=== PATIENT | female | born 1980 | race Caucasian/White ===

== ENCOUNTER → 2018-05-15 17:04 | Outpatient (CLI) | payer OTHER, SELFPAY ==
[2018-05-15 17:26] LABS: Absolute Neutrophil Count 4.9 X10^3/uL (2.0-7.7); Basophil# 0.03 X10^3/uL; Basophil% 0.4 % (0-1); Eosinophil# 0.17 X10^3/uL; Eosinophils% 2.1 % (0-5); Hematocrit 35.8 % (37-47); Hemoglobin 12.4 g/dl (12.0-15.0); Lymphocyte % 26.4 % (19-41); Mean Corp Hgb Conc 34.6 g/gl (32-36); Mean Corpuscular Hgb 29.8 pg (27.0-32.0); Mean Corpuscular Volume 86.1 fL (81-99); Monocyte# 0.69 X10^3/uL; Monocyte% 8.7 % (0-10); Neutrophil # 4.94 X10^3/uL (2.7-7.7); Neutrophil % 62.1 % (47-70); Platelet Count 181 K/mm3 (150-450); RBC Distribution Width CV 13.2 % (11.6-14.6); RBC Distribution Width SD 40.6 fl (35.1-43.9); Red Blood Count 4.16 M/mm3 (4.2-5.4)
[2018-05-15 17:28] LABS: POSITIVE COUNT NO; POSITIVE DIFFERENTIAL NO; POSITIVE MORPHOLOGY NO
[2018-05-15 18:55] LABS: Chlamydia Trachomatis by PCR Negative (Negative); Neisserai gonorrhoeae by PCR Negative (Negative); Probe Check PASS; Sample Adequacy Control PASS; Specimen Processing Control PASS
[2018-05-16 05:02] LABS: Rapid Plasmin Reagin (RPR) NONREACTIVE (NONREACTIVE)
[2018-05-16 13:18] LABS: HIV - WCH Non-Reactive (Nonreactive); Rubella IgG 61.1 IU/mL
[2018-05-19 10:00] LABS: HEPATITIS B SURFACE AG Negative (Negative)
[2018-05-20 08:53] LABS: HPV Reflexed? NOT INDICATED
== END ==
PROVIDERS: Visit Provider Obstetrics & Gynecology
DX: O09.91 Supervision of high risk pregnancy, unspecified, first trimester (principal)
CPT/HCPCS: 85025; 86592; 86703; 86762; 86850; 86900; 87077; 87086; 87088; 87186; 87340; 87491; 87591; 88175; G0145

== ENCOUNTER → 2018-06-26 18:09 | Outpatient (CLI) | payer OTHER, SELFPAY | PROVIDERS: Visit Provider Nurse Practitioner Women's Health | DX: O23.40 Unspecified infection of urinary tract in pregnancy, unspecified trimester (principal); Z3A.00 Weeks of gestation of pregnancy not specified | CPT/HCPCS: 87086 ==

== ENCOUNTER → 2018-08-20 11:29 | Outpatient (CLI) | payer OTHER, SELFPAY ==
--- NOTE | 2018-08-20 11:31 | US_ITS ---
STUDY: SECOND AND THIRD TRIMESTER OBSTETRICAL ULTRASOUND - LIMITED REASON FOR EXAM: Female, 38 years old. Documentation of growth. LMP: March 11, 2018 PRIOR ULTRASOUND: Prior comparison studies are not available for review at this time. TECHNIQUE: Transabdominal TECHNICAL QUALITY: Adequate. FINDINGS: There is a single intrauterine fetus. The fetus is in a transverse lie with the head on the maternal right side. There is demonstrated cardiac activity with a heart rate of 144 bpm. There is a normal amniotic fluid volume. The placenta is posterior in location and is not low lying. There are Grade 1 placental changes. The cervix measures greater than 3.5 cm in length. BIOMETRY: BPD: 5.8 cm: 23 weeks, 6 days HC: 21.9 cm: 24 weeks, 0 days AC: 18.4 cm: 23 weeks, 2 days FL: 4.3 cm: 24 weeks, 0 days Age by LMP: 23 weeks, 1 days. ILENE by LMP: December 16, 2018. age by current US: 23 weeks, 6 days. ILENE by current US: December 11, 2018. Estimated weight: 606 grams, +/- 89 grams, 63 percentile. Gender: Male US/OB Limited With Biometrics IMPRESSION: Single living intrauterine gestation with estimated gestational age by size of 23 weeks 6 days. Electronically Signed: Fina Wagner MD at 9:06 EDT , Service support ,
== END ==
PROVIDERS: Referring Provider Obstetrics & Gynecology; Visit Provider Obstetrics & Gynecology
DX: O09.90 Supervision of high risk pregnancy, unspecified, unspecified trimester (principal); Z3A.00 Weeks of gestation of pregnancy not specified
CPT/HCPCS: 76816

== ENCOUNTER → 2018-08-22 10:15 | Outpatient (CLI) | payer SELFPAY ==
--- NOTE | 2018-08-22 10:18 | US_ITS ---
STUDY: SECOND AND THIRD TRIMESTER OBSTETRICAL ULTRASOUND REASON FOR EXAM: Female, 38 years old. Evaluate anatomy. LMP: Unknown. TECHNIQUE: Transabdominal TECHNICAL QUALITY: Adequate. PRIOR ULTRASOUND: 08/20/2018. FINDINGS: There is a single intrauterine fetus. The fetus is in an transverse lie with the head on the maternal left side. There is demonstrated cardiac activity with a heart rate of 149 bpm. There is a normal amniotic fluid volume. The largest amniotic fluid pocket measures 5.3 cm. The amniotic fluid index (CHUCKY) is 18 cm. The placenta is posterior in location and is not low lying. There are Grade 1 placental changes. The cervix measures 5.4 cm in length. The bilateral adnexal regions are visualized. BIOMETRY: BPD: 59 mm: 24 weeks, 2 days HC: 224 mm: 24 weeks, 3 days AC: 191 mm: 24 weeks, 3 days FL: 44 mm: 24 weeks, 3 days age by current US: 24 weeks, 2 days. ILENE by current US: 12/10/2018. Estimated weight: 657 grams, +/- 96 grams, 73 %. age by prior US: 23 weeks, 6 days. ILENE by prior US: 12/11/2018. Age by LMP: 23 weeks, 3 days. ILENE by LMP: 12/16/2018. ANATOMY: Gender: Male Cranium: Normal lateral ventricles. Normal choroid plexus. Normal cerebellum. Normal cisterna magna. Normal face, nose and lips. Chest: Normal 4-chamber heart. Abdomen/Pelvis: Normal diaphragm. Normal stomach. Normal abdominal wall. Normal cord insertion. Normal 3 vessel cord. Normal kidneys. Normal bladder. Spine: Normal cervical spine. Normal thoracic spine. Normal lumbar spine. Normal sacrum. Extremities: Normal bilateral upper extremities. Normal bilateral lower extremities. US/OB Anatomy Scan IMPRESSION: Single live intrauterine fetus in transverse presentation with an estimated gestational age of 24 weeks and 2 days. The ILENE is 12/10/2018. Electronically Signed: Genaro Monson MD at 15:59 EDT Tel , Service support ,
== END ==
PROVIDERS: Referring Provider Obstetrics & Gynecology; Visit Provider Obstetrics & Gynecology
DX: Z36.89 Encounter for other specified antenatal screening (principal)
CPT/HCPCS: 76805

== ENCOUNTER → 2018-09-17 12:01 | Outpatient (CLI) | payer OTHER, SELFPAY ==
[2018-09-17 13:31] LABS: Absolute Lymphocyte Count 1.75 X10^3/ul (0.83-4.51); Absolute Neutrophil Count 7.8 X10^3/uL (2.0-7.7); Basophil# 0.02 X10^3/uL; Basophil% 0.2 % (0-1); Eosinophil# 0.15 X10^3/uL; Eosinophils% 1.5 % (0-5); Hematocrit 33.1 % (37-47); Hemoglobin 10.5 g/dl (12.0-15.0); Lymphocyte # 1.75 X10^3/ul (4.0); Lymphocyte % 16.9 % (19-41); Mean Corp Hgb Conc 31.7 g/gl (32-36); Mean Corpuscular Hgb 27.9 pg (27.0-32.0); Mean Corpuscular Volume 87.8 fL (81-99); Mean Platelet Vol. 9.2 fl (6.2-12.0); Monocyte% 5.8 % (0-10); Neutrophil # 7.77 X10^3/uL (2.7-7.7); Neutrophil % 75.1 % (47-70); POSITIVE COUNT NO; POSITIVE DIFFERENTIAL NO; POSITIVE MORPHOLOGY NO; Platelet Count 181 K/mm3 (150-450); RBC Distribution Width CV 13.5 % (11.6-14.6); RBC Distribution Width SD 43.3 fl (35.1-43.9); Red Blood Count 3.77 M/mm3 (4.2-5.4); White Blood Count 10.3 K/mm3 (4.4-11.0)
[2018-09-17 13:50] LABS: Glucose Challenge Gest 1H 50g 135 mg/dL (70-140)
== END ==
PROVIDERS: Referring Provider Obstetrics & Gynecology; Visit Provider Obstetrics & Gynecology
DX: O09.92 Supervision of high risk pregnancy, unspecified, second trimester (principal); Z3A.00 Weeks of gestation of pregnancy not specified
CPT/HCPCS: 36415; 82950; 85025

== ENCOUNTER → 2018-10-06 06:33 | Outpatient (CLI) | payer OTHER, SELFPAY ==
[2018-10-06 09:05] LABS: Glucose GTT-Gestation. Fasting 75 mg/dL (<105)
[2018-10-06 09:09] LABS: Glucose GTT-Gestational 2 Hr 100 mg/dL (<165)
[2018-10-06 09:10] LABS: Glucose GTT-Gestational 1 Hr 121 mg/dL (<190)
[2018-10-06 10:49] LABS: Glucose GTT-Gestational 3 Hr 104 L (<145)
== END ==
PROVIDERS: Referring Provider Obstetrics & Gynecology; Visit Provider Obstetrics & Gynecology
DX: R73.09 Other abnormal glucose (principal)
CPT/HCPCS: 36415; 82951; 82952

== ENCOUNTER → 2018-11-07 18:11 | Outpatient (CLI) | payer OTHER, SELFPAY ==
[2018-11-07 13:07] VITALS: BMI 29.3
[2018-11-07 21:10] LABS: Group B Strep DNA By PCR Negative (Negative); Internal Control PASS; Probe Check PASS; Specimen Processing Control PASS
== END ==
PROVIDERS: Referring Provider Obstetrics & Gynecology; Visit Provider Obstetrics & Gynecology
DX: Z34.90 Encounter for supervision of normal pregnancy, unspecified, unspecified trimester (principal)
CPT/HCPCS: 87081; 87653

== ENCOUNTER 2018-11-21 09:50 | Outpatient (CLI) | payer SELFPAY ==
[2018-11-07 13:07] VITALS: BMI 29.3
[2018-11-21] MEDS: Lactated Ringers 1,000 ML 999 ML IV (10:20)
[2018-11-21 10:36] LABS: Absolute Lymphocyte Count 1.61 X10^3/ul (0.83-4.51); Absolute Neutrophil Count 7.5 X10^3/uL (2.0-7.7); Basophil# 0.02 X10^3/uL; Basophil% 0.2 % (0-1); Eosinophil# 0.05 X10^3/uL; Eosinophils% 0.5 % (0-5); Hematocrit 37.9 % (37-47); Hemoglobin 12.4 g/dl (12.0-15.0); Lymphocyte # 1.61 X10^3/ul (4.0); Lymphocyte % 15.9 % (19-41); Mean Corp Hgb Conc 32.7 g/gl (32-36); Mean Corpuscular Hgb 29.2 pg (27.0-32.0); Mean Corpuscular Volume 89.2 fL (81-99); Mean Platelet Vol. 9.7 fl (6.2-12.0); Monocyte# 0.85 X10^3/uL; Monocyte% 8.4 % (0-10); Neutrophil # 7.52 X10^3/uL (2.7-7.7); Neutrophil % 74.5 % (47-70); Platelet Count 124 K/mm3 (150-450); RBC Distribution Width CV 17.4 % (11.6-14.6); RBC Distribution Width SD 56.6 fl (35.1-43.9); Red Blood Count 4.25 M/mm3 (4.2-5.4); White Blood Count 10.1 K/mm3 (4.4-11.0)
[2018-11-21 10:37] LABS: POSITIVE COUNT NO; POSITIVE DIFFERENTIAL NO; POSITIVE MORPHOLOGY NO
[2018-11-21 10:49] VITALS: BMI 30.9
[2018-11-21] MEDS: Lactated Ringers 1,000 ML 150 ML IV (11:15)
[2018-11-21] MEDS: Sodium Citrate/Citric Acid 30 ML UDC PO (11:42)
[2018-11-21] MEDS: Betamethasone/Betamethasone 30 MG/5 ML Vial 12 MG IM (12:12)
--- NOTE | 2018-11-25 02:23 | OB.TRI.NOTE ---
- Problem List (1) Elevated glucose tolerance test Status: Acute Comment: nl 3 hr GTT (2) Anemia during Status: Acute Comment: Start Iron (3) Status: Acute Qualifiers: (4) Asymptomatic bacteriuria during Status: Acute Comment: 06/26/18 repeat culture neg (5) Advanced maternal age (AMA) in Status: Acute (6) Grand multipara Status: Acute (7) Uterine scar from previous delivery Status: Acute Comment: previous inverted T incision- recommend repeat . (8) Supervision of high-risk Status: Acute Qualifiers: Comment: PRR ILENE 12/16/18 PC Veronica Maya Elizabeth, Lydia, Leah, Anna, Brian, Kvng Faheem History of Present Illness Date of Service: 11/21/18 Was patient seen by the physician?: Yes Reason For Visit: CELESTONE SHOT, US History of Present Illness: celestone shot given due to prematurity, discussed with patient and plan RLTCS on saturday after 48 hours of steroids. Allergies No Known Allergies Allergy (Verified 11/07/18 13:06) - Pertinent Past Medical History Medical History: Past Medical History (Last Reviewed 11/07/18 @ 13:07 by Jennifer Valenzuela) No significant medical problems Bunion removal Surgical History: Past Surgical History (Last Reviewed 11/07/18 @ 13:07 by Jennifer Valenzuela) H/O section Onset Date: ~09/2016 Laboratory Studies: Laboratory Tests 11/21/18 11/21/18 Range/Units 10:22 10:22 WBC 10.1 (4.4-11.0) K/mm3 RBC 4.25 (4.2-5.4) M/mm3 Hgb 12.4 (12.0-15.0) g/dl Hct 37.9 (37-47) % MCV 89.2 (81-99) fL MCH 29.2 (27.0-32.0) pg MCHC 32.7 (32-36) g/gl RDW 17.4 H (11.6-14.6) % RDW Differential 56.6 H (35.1-43.9) fl Plt Count 124 L (150-450) K/mm3 MPV 9.7 (6.2-12.0) fl Immature Gran % (Auto) 0.500 (0.0-0.9) % Neut % (Auto) 74.5 H (47-70) % Lymph % (Auto) 15.9 L (19-41) % [place] % (Auto) 8.4 (0-10) % Eos % (Auto) 0.5 (0-5) % Baso % (Auto) 0.2 (0-1) % Absolute Neuts (auto) 7.5 (2.0-7.7) X10^3/uL Absolute Lymphs (auto) 1.61 (0.83-4.51) X10^3/ul Total Counted Not Reportable Blood Type O POSITIVE Antibody Screen NEGATIVE
== END 2018-11-21 14:50 | disposition home or self-care (01) ==
PROVIDERS: Referring Provider Obstetrics & Gynecology; Visit Provider Obstetrics & Gynecology
DX: O26.893 Other specified pregnancy related conditions, third trimester (principal); Z3A.00 Weeks of gestation of pregnancy not specified
CPT/HCPCS: 96360; 96361; 36415; 76815; 85025; 86850; 86900; 96372; 99218; J7120; G0378; J0702

== ENCOUNTER 2018-11-23 10:00 | Inpatient (IN) | payer SELFPAY ==
--- NOTE | 2018-11-22 12:23 | FALS_PTH ---
PATIENT: KARO VANEGAS LOC: [facility] U#:[id number] AGE/SX: 38/F ROOM: WP004 RE11/23/[address]: Dr. Sheree Reyes MD : 1980 BED: 1 DIS: 11/24/2018 SPEC #: [id number] RECD: 11/23/18 23:17 STATUS: CAITY CHAN #: [id number] TEO: 11/22/18 12:[address]: Sheree Reyes DEPT: SURGICAL PATHOLOGY RECD BY: Lazarus Rodriguez ENTERED: 11/24/18 08:06 SP TYPE: FALL TUBES OTHR DR: No Primary Care Phys Tissues: Fallopian tube Procedures: Surgery Specimen Level II HEADER OPERATION: Tubal ligation PRE-OP DIAGNOSIS: Not noted TISSUE SUBMITTED: Fallopian tubes, suture in right tube MICROSCOPIC DIAGNOSIS Bilateral fallopian tubes, salpingectomy: Bilateral fallopian tubes including fimbrial ends, no pathologic diagnosis. BRY:reshma 11/25/18 MICROSCOPIC DESCRIPTION Slides are reviewed. GROSS DESCRIPTION Received is one container labeled with the patient's name and designated bilateral salpingectomy, right tube suture. The specimen consists of bilateral fallopian tubes including fimbrial ends. The right tube is identified by a suture. The right tube measures 4.5 cm in length and 1 cm in diameter and left tube measures 5 cm in length and 0.7 cm in diameter. Sections reveal unremarkable cut surfaces. Drilling Plant Operator sections are submitted in two cassettes as follows: 1 - right tube, 2 - left tube. / BRY:reshma 11/24/18 TC:4 CPT: 51900 x2
[2018-11-23] VITALS (17 sets, daily range): BP systolic 88–108; BP diastolic 51–66; PULSE 56–83; RESP 12–17; TEMP 36.6–37.5; O2SAT 16–99; BMI 30.4
[2018-11-23] MEDS: Lactated Ringers 1,000 ML 999 ML IV (10:42)
[2018-11-23] MEDS: Sodium Citrate/Citric Acid 30 ML UDC PO (11:37)
[2018-11-23] MEDS: Lactated Ringers 1,000 ML 150 ML IV (11:37)
[2018-11-23] MEDS: Cefazolin 2 GM in 0.9% Normal Saline 100 ML IV (11:38)
--- NOTE | 2018-11-23 12:14 | PCM.HPOB.BLA ---
- Problem List (1) Advanced maternal age (AMA) in Status: Acute (2) Anemia during Status: Acute Comment: Start Iron (3) Asymptomatic bacteriuria during Status: Acute Comment: 06/26/18 repeat culture neg (4) Elevated glucose tolerance test Status: Acute Comment: nl 3 hr GTT (5) Grand multipara Status: Acute (6) Status: Acute Qualifiers: (7) Supervision of high-risk Status: Acute Qualifiers: Comment: PRR ILENE 12/16/18 PC Veronica Maya Elizabeth, Lydia, Leah, Anna, Brian, Kvng Faheem (8) Uterine scar from previous delivery Status: Acute Comment: previous inverted T incision- recommend repeat . History and Physical Date of Admission: 11/23/18 Intake Vital Signs 11/07/18 Body Mass Index (BMI) 29.3 11/07/18 Weight: 154 lb 2 oz 11/07/18 Blood Pressure 116/64 Intake Visit Reasons: 34 week ob Chief Complaint: Est OB Accompanied by: Self Is patient in pain?: No Allergies No Known Allergies Allergy (Verified 11/07/18 13:06) Medications ferrous fumarate 325 mg (106 mg iron) tablet 325 mg PO BID tab 10/20/18 [History Confirmed 11/07/18] Last Menstral Period: 03/11/18 Zika: Zika virus screening: Negative : No PFSH PFSH Medical History No significant medical problems (Acute) Bunion (Inactive) Surgical History H/O section (Acute ~09/2016) Family History Mother Hypertension Diabetes Father Multiple sclerosis Social History adopted: No household members: family housing: house number of children: 8 current occupational status: unemployed current occupation: housewife pets and animals: Yes Smoking Status: Never smoker second hand exposure: No alcohol intake: never substance use type: does not use marlena/congregational: Joel seatbelt use: other additional social history: Faheem- business office representative [place] Pregancy History 9 Elective abortions Hx Para 8 Spontaneous abortions Hx # Term Pregnancies Ectopic pregnancies Hx # Pregnancies Multiple births # of living children 8 Past Pregnancies Del. Date Name GA/Weeks Outcome Route Bth Weight Gen Labor Lgth Anesthesia Del Locatn Provider FOB Unknown 02-11-2003- Francesco 40 live - full term Male Frieda Osman Unknown 08-27-2004- Veronica 40 live - full term Female Frieda Osman Unknown 06-09-2006- Santa 40 live - full term Female Frieda Osman Unknown 11-12-2007 Marge 40 live - full term Female Frieda Osman Unknown 11-03-2009 Abeba 40 live - full term Female Home delivery Unknown 02-06-2012- Fina 40 live - full term Female Home Delivery Unknown 05-08-2014 Car 40 live - full term Male Home Delivery Unknown 09-20-2016 Kvng 41 live - full term Male [facility] Dr. Shilo Melgoza Delivery Date: On 05/15/18 @ 16:08 Mary Marina Prolapsed cord, transverse postion Delivery Date: No notes to display Delivery Date: No notes to display Delivery Date: No notes to display Delivery Date: No notes to display Delivery Date: No notes to display Delivery Date: No notes to display Delivery Date: No notes to display HPI 34 week ob: Details: KARO VANEGAS is a 38 year old who presents for routine OB visit. She is preop for her scheduled . OB Visit ILENE Calculator Estimated Delivery Date 12/16/18 Based on LMP (certain) 03/11/18 Current WG 34w 3d Number 1 Expected Delivery Route/Plan plans RLTCS BTO Specific Issue/Plans flu vaccine: declined tdap vaccine: given rhogam: na LARC form signed: signed labor support person: Faheem pain management: c section cut cord/dad catch: : yes PP control planned: BTO special requests: [] Initial Weight: 130 lb Date EGA Weight BP Urine Prot Glucose FHR FuHt Pres Mov CTX Dilation Effaced St Visit Note Provider Comments 06/26/18 15w 2d 130 lb 6 oz (+6 oz) 107/61 Negative Negative 139 Doing well. No VB, LOF 07/22/18 19w 0d 137 lb (+7 lb) 118/68 Negative Negative 145 no vb lof good fm no regular ctx schedule anatomy us at next visit 08/22/18 23w 3d 141 lb 4 oz (+11 lb 4 oz) 116/72 140 no vb lof good fm no regular ctx. will get follow up views for complete anatomy 09/17/18 27w 1d 148 lb (+18 lb) 100/60 Negative Negative 140 27 cbc gct no vb lof good fm no regular ctx. schedule cs for 36 weeks 10/06/18 29w 6d 150 lb 4 oz (+20 lb 4 oz) 104/60 Negative Negative 154 29 Active absent Doing well. 3hr GTT today. No VB, LOF. 10/20/18 31w 6d 150 lb 8 oz (+20 lb 8 oz) 104/66 Negative Negative 150 32 Breech Active absent no vb lof good fm noregualr ctx tdap today larc signed 11/07/18 34w 3d 154 lb 2 oz (+24 lb 2 oz) 116/64 Trace Negative 150 35 Active absent no vb lof good fm no regular ctx Visit Notes Visit Date: 11/07/18 ??no vb lof good fm no regular ctx ??Sheree Reyes MD on 11/07/18 Visit Date: 10/20/18 ??no vb lof good fm noregualr ctx tdap today larc signed ??Sheree Reyes MD on 10/20/18 Visit Date: 10/06/18 ??Doing well. 3hr GTT today. No VB, LOF. ??JANA Hughes on 10/06/18 Visit Date: 09/17/18 ??cbc gct no vb lof good fm no regular ctx. schedule cs for 36 weeks ??Sheree Reyes MD on 09/17/18 Visit Date: 08/22/18 ??no vb lof good fm no regular ctx. will get follow up views for complete anatomy ??Sheree Reyes MD on 08/22/18 Visit Date: 07/22/18 ??no vb lof good fm no regular ctx schedule anatomy us at next visit ??Sheree Reyes MD on 07/22/18 Visit Date: 06/26/18 ??Doing well. No VB, LOF ??JANA Hughes on 06/26/18 ACOG First Trimester First Trimester: Desire for , Alcohol, Tobacco Cessation, Illicit/Recreational Drug/Substance Use, Intimate Partner Violence, Barriers to care, Unstable Housing, Communication Barriers, Environmental/Work Hazards, Anticipated Course of Care, Toxoplasmosis Precations, Use of Any medications, Sexual activity, Exercise, Dental Care, Sauna/Hot tub use, Seat Belt use, Childbirth classes/Hospital facilities, , Travel, Indications for US and Screening for Aneuploidy Diagnostics Diagnostics Labs Blood Type O POSITIVE 05/15/18 Antibody Screen NEGATIVE 05/15/18 Hct 33.1 % (37-47) L 09/17/18 Hgb 10.5 g/dl (12.0-15.0) L 09/17/18 Obstetrics Ultrasound 08/22/18 Rubella IgG Antibody 61.1 IU/mL 05/15/18 RPR NONREACTIVE (NONREACTIVE) 05/15/18 Hep Bs Antigen Negative (Negative) 05/15/18 Chlam trachomat DNA PCR Negative (Negative) 05/15/18 N.gonorrhoeae DNA (PCR) Negative (Negative) 05/15/18 Glucose 1 Hr 50 gm 135 mg/dL (70-140) 09/17/18 Details: HIV: Urine Culture: Sequential Screen: NIPT Screen: ROS: General: negative heent: negative CV: negative Audiometrist: see hpi GI: otherwise negative unless documented in hpi PE: VSSAF General: alert oriented comfortable CV: RRR Resp: nl inspiratory effort Abdn: soft gravid NTTP approrpriate GA Ext: minimal edema Results [id number] Office Urine Glucose Negative Last Edit by Sandra Khalil on 11/07/18 13:01 Office Urine Protein Trace Last Edit by Sandra Khalil on 11/07/18 13:01 Assessment & Plan Problems 1. Uterine scar from previous delivery O34.219 previous inverted T incision- recommend repeat . 2. Asymptomatic bacteriuria during O99.89; R82.71 06/26/18 repeat culture neg 3. Advanced maternal age (AMA) in 4. 34 weeks gestation of Z3A.34 5. Supervision of high risk in third trimester O09.93 PRR ILENE 12/16/18 Veronica Irving Elizabeth, Lydia, Leah, Anna, Brian, Kvng Faheem 6. Grand multipara Z64.1 7. Anemia during O99.019 Start Iron 8. Elevated glucose tolerance test R73.09 nl 3 hr GTT Plan plan RLTCS BTL- s/p 48 hrs celestone and cs done early due to previous t incision Orders Orders: POC Urinalysis 2 Dip (Clinic) Today Coding Level of Care Code OB Routine Diagnoses Uterine scar from previous delivery O34.219 Asymptomatic bacteriuria during O99.89; R82.71 Advanced maternal age (AMA) in 34 weeks gestation of Z3A.34 ??Weeks of gestation: 34 weeks Supervision of high risk in third trimester O09.93 ??Trimester: third trimester Grand multipara Z64.1 Anemia during O99.019 Elevated glucose tolerance test R73.09
--- NOTE | 2018-11-23 12:17 | OP.PCM_ITS ---
Problem List (1) Advanced maternal age (AMA) in Status: Acute (2) Anemia during Status: Acute Comment: Start Iron (3) Asymptomatic bacteriuria during Status: Acute Comment: 06/26/18 repeat culture neg (4) Elevated glucose tolerance test Status: Acute Comment: nl 3 hr GTT (5) Grand multipara Status: Acute (6) Status: Acute Qualifiers: (7) Supervision of high-risk Status: Acute Qualifiers: Comment: PRR ILENE 12/16/18 Veronica Irving Elizabeth, Lydia, Leah, Anna, Brian, Kvng Mayen (8) Uterine scar from previous delivery Status: Acute Comment: previous inverted T incision- recommend repeat . Report of Operation Date of Procedure: 11/23/18 Pre-Operative Diagnosis: prev t incision Post-Operative Diagnosis: same and sterilization Surgery/Procedure Performed:: RLTCS and bilateral salpingectomy Description of Surgical Findings:: thin rectus bellies, extensive bladder adhesions with thin vesicouterine fold machine or machinery mechanic: Eusebio Reich Type of Anesthesia:: Spinal Special Medications: anna Specimen's removed: tubes Drains: adair Estimated Blood Loss (mL): 800 Fluids Replaced: crystalloid Description of Procedure: spinal anesthesia was placed and adair catheter inserted. The patient was placed in the dorsal supine position with leftward tilt. Patient was prepped and draped in the normal sterile fashion. Pfannenstiel skin incision was made with the scalpel and carried through to the underlying layer of fascia with the scalpel. Fascia was nicked in the midline and the incision extended laterally. The rectus bellies were dissected off superiorly and inferiorly with out complication both sharply and bluntly. The peritoneum was entered digitally. The incision was stretched and a low transverse uterine incision was made with the scalpel. The infant's head was delivered atraumatically followed by the anterior and posterior shoulders without complication the rest of the infant delivered. The cord was clamped and cut and the was handed off to awaiting nurse. The placenta was delivered spontaneously immediately following and was noted to be intact and have a three-vessel cord. The uterus was exteriorized cleared of all clots and debris, and the incision was closed in a single layer closure using #1 Monocryl. bilateral salpingectomy was performed incising the mesosalpinx and tying proximally and distally double ties on the lateral pedicles and the rubes removed. The uterus was returned to the maternal abdomen and gutters were cleared of all clots and debris. The ovaries and fallopian tubes were noted to be within normal limits. The peritoneum was closed with 3-0 Monocryl in a running fashion. anna was used on the rectus bleiies which were very thin and some bleeding noted on the left side with no obvious source, inferior epigastric was felt to be intact. 1 monocryl was used to perform a running mattress closure of the rectus blelies for hemostasis. Fascia was closed with 0 PDS in a running fashion. Subcutaneous tissue was copiously irrigated and the skin was closed with 3-0 Monocryl in a subcuticular fashion. Mepilex dressing were applied without complication. Patient was taken to recovery in stable condition. Grafts/Implants Used: none - Complications none
[2018-11-23] MEDS: Oxytocin 30 units/NS 500 ml 30 UNITS/500 ML IV.SOLN 167 UNITS IV (12:25)
--- NOTE | 2018-11-23 13:48 | NURSING ---
abdominal binder placed after surgery per Dr Reyes's instructions.
--- NOTE | 2018-11-23 14:47 | NURSING ---
Instructed on using incentive spirometer, pt verbalizes understanding.
--- NOTE | 2018-11-23 15:44 | NURSING ---
Ric care per RN, jonna benson, FF u/2. Clean ric pad and panties on. Tolerated movement well.
[2018-11-23] MEDS: Ferrous Sulfate 325 MG Tablet PO (17:20)
[2018-11-23] MEDS: Lactated Ringers 1,000 ML 100 ML IV (17:20)
[2018-11-23] MEDS: Nalbuphine 10 MG/ML Ampul 5 MG IV (17:32)
[2018-11-23] MEDS: Ketorolac 30 MG/ML Syringe IV ×2 (17:50→23:53)
[2018-11-23] MEDS: 0.9% Saline Lock 10 ML Syringe IV (17:51)
[2018-11-23 23:23] LABS: Pathology Specimen OB SEE PATHOLOGY REPORT
[2018-11-24] VITALS (8 sets, daily range): BP systolic 92–113; BP diastolic 52–69; PULSE 65–92; RESP 16–18; TEMP 36.6–36.9; O2SAT 95–99
[2018-11-24] MEDS: Lactated Ringers 1,000 ML 100 ML IV (03:00)
[2018-11-24] MEDS: Ketorolac 30 MG/ML Syringe IV ×3 (06:10→17:35)
[2018-11-24 06:37] LABS: Hematocrit 31.7 % (37-47); Hemoglobin 10.2 g/dl (12.0-15.0); Mean Corp Hgb Conc 32.2 g/gl (32-36); Mean Corpuscular Hgb 29.2 pg (27.0-32.0); Mean Corpuscular Volume 90.8 fL (81-99); Mean Platelet Vol. 9.1 fl (6.2-12.0); Platelet Count 126 K/mm3 (150-450); RBC Distribution Width CV 17.8 % (11.6-14.6); RBC Distribution Width SD 59.2 fl (35.1-43.9); Red Blood Count 3.49 M/mm3 (4.2-5.4); White Blood Count 10.2 K/mm3 (4.4-11.0)
[2018-11-24 07:12] LABS: Scan Indicated on CBC? Y/N NO
[2018-11-24] MEDS: 0.9% Saline Lock 10 ML Syringe IV ×2 (08:23→17:36)
[2018-11-24] MEDS: Ferrous Sulfate 325 MG Tablet PO ×2 (08:23→17:35)
--- NOTE | 2018-11-24 08:31 | PCM.PN.OB ---
Subjective: Doing well. No CP, SOB. Anxious to go home later today. - Physical Exam General: Alert, Oriented x3 Abdomen: Soft, Non-Distended, - - Minimal tenderness. FF below U. Dressing dry and intact Vital Signs Temp Pulse Resp BP Pulse Ox 97.8 F 68 18 92/66 98 11/24/18 08:28 11/24/18 08:28 11/24/18 08:28 11/24/18 08:28 11/24/18 08:28 Oxygen Delivery Method Room Air Weight: 150 lb 12.739 oz Body Mass Index (BMI) 30.4 Intake and Output for Last 24 Hours 11/22/18 11/23/18 11/24/18 23:59 23:59 23:59 Intake Total 4511 / 4511 1700 / 1700 Output Total 1600 / 1600 600 / 600 Balance 2911 / 2911 1100 / 1100 Laboratory Tests Past 24 Hrs 11/24/18 06:15 WBC 10.2 RBC 3.49 L Hgb 10.2 L Hct 31.7 L MCV 90.8 MCH 29.2 MCHC 32.2 RDW 17.8 H RDW Differential 59.2 H Plt Count 126 L MPV 9.1 Medical Necessity - Tobacco Use Smoking Status: Never smoker Assessment/Plan All Active Problems (Last Reviewed 11/07/18 @ 13:07 by Jennifer Valenzuela) Elevated glucose tolerance test (Acute) Anemia during (Acute) (Acute) Asymptomatic bacteriuria during (Acute) Advanced maternal age (AMA) in (Acute) Grand multipara (Acute) Uterine scar from previous delivery (Acute) Supervision of high-risk (Acute) RLTCS BTO: Routine care. . Home today
--- NOTE | 2018-11-24 08:33 | PCM.DCCSEC ---
Additional Instructions: If you experience any of the following, contact your healthcare provider. Bleeding that soaks a pad every hour for 2 hours Fever 100.4 or higher Unrelieved incision or abdominal pain Swelling, redness, discharge or bleeding from your incision or episiotomy site Your incision begins to separate Problems urinating (including inability to urinate or burning while urinating). Visual changes Severe headache Flu-like symptoms Pain or redness in one of both of your breasts Pain, warmth, tenderness or swelling in your legs, especially the calf area Frequent nausea and vomiting Symptoms of depression or anxiety If you experience any of the following, call 911 or go to the nearest Emergency Room. Chest pain Problems breathing Seizure activity Partial or complete paralysis of a body part, slurred speech, weakness or drooping of the face, or a sudden inability to walk or hold your balance Allergies/Adverse Reactions: Allergies No Known Allergies Allergy (Verified 11/07/18 13:06) Medications to take at Discharge ferrous fumarate 325 mg (106 mg iron) tablet 325 mg PO BID tab 10/20/18 Betamethasone Acetate,Sod Phos [Celestone Soluspan 30 mg/5 ml] 12 mg IM DAILY 11/23/18 Follow-Up: Call to make an appointment with your doctor for an incision check in 1-2 weeks. You will also need a 6 week post- follow up appointment. Test results from this visit will be discussed in further detail at your follow-up appointment, if applicable. Primary Care Physician: Care Physician,No Primary [Primary Care Provider] -
--- NOTE | 2018-11-24 08:34 | DCINST_ITS ---
Additional Instructions: If you experience any of the following, contact your healthcare provider. * Bleeding that soaks a pad every hour for 2 hours * Fever 100.4 or higher * Unrelieved incision or abdominal pain * Swelling, redness, discharge or bleeding from your incision or episiotomy site * Your incision begins to separate * Problems urinating (including inability to urinate or burning while urinating). * Visual changes * Severe headache * Flu-like symptoms * Pain or redness in one of both of your breasts * Pain, warmth, tenderness or swelling in your legs, especially the calf area * Frequent nausea and vomiting * Symptoms of depression or anxiety If you experience any of the following, call 911 or go to the nearest Emergency Room. * Chest pain * Problems breathing * Seizure activity * Partial or complete paralysis of a body part, slurred speech, weakness or drooping of the face, or a sudden inability to walk or hold your balance Allergies/Adverse Reactions: Allergies No Known Allergies Allergy (Verified 11/07/18 13:06) Medications to take at Discharge ferrous fumarate 325 mg (106 mg iron) tablet 325 mg PO BID tab 10/20/18 Betamethasone Acetate,Sod Phos [Celestone Soluspan 30 mg/5 ml] 12 mg IM DAILY 11/23/18 Follow-Up: Call to make an appointment with your doctor for an incision check in 1-2 weeks. You will also need a 6 week post- follow up appointment. Test results from this visit will be discussed in further detail at your follow- up appointment, if applicable. Primary Care Physician: Care Physician,No Primary [Primary Care Provider] -
[2018-11-24] MEDS: Senna/Docusate Sodium 1 Tablet PO (17:45)
== END 2018-11-24 19:10 | disposition home or self-care (01) | DRG 785 ==
PROVIDERS: Admitting Provider Obstetrics & Gynecology; Visit Provider Obstetrics & Gynecology
PROC: 10D00Z1 Extraction of Products of Conception, Low, Open Approach (ICD-10-PCS; CPT 59514; principal; 2018-11-23 11:45)
DX: O34.211 Maternal care for low transverse scar from previous cesarean delivery (principal); Z3A.36 36 weeks gestation of pregnancy; Z37.0 Single live birth
CPT/HCPCS: 85027; 88302; 99218; J7120; A4216; G0378

== ENCOUNTER → 2019-12-07 12:11 | Outpatient (CLI) | payer OTHER, SELFPAY ==
[2019-12-07 11:29] VITALS: BMI 30.4
--- NOTE | 2019-12-07 12:38 | US_ITS ---
STUDY: ULTRASOUND OF THE FEMALE PELVIS - COMPLETE REASON FOR EXAM: Female, 39 years old. IRREGULAR MENSES LMP: December 04, 2019. TECHNIQUE: Transabdominal and Transvaginal TECHNICAL QUALITY: Adequate. COMPARISON: None. FINDINGS: The uterus is anteverted and is in a midline position. The uterus measures 9.8 cm x 7.9 cm x 5.9 cm. Normal uterine cervix. The endometrium measures 14 mm in thickness, and is fluid distended. There is no demonstrated endometrial mass. There is no demonstrated myometrial mass. I.U.D. - The patient does not have an I.U.D. The right ovary is visualized. The right ovary measures 3.1 cm x 2 cm x 2.2 cm. There is no right ovarian cyst or ovarian mass. There is no visualized right adnexal mass or complex lesion. There is normal arterial and normal venous vascularity. The left ovary is visualized. The left ovary measures 2.9 cm x 1.7 cm x 1.4 cm. There is no left ovarian cyst or ovarian mass. There is no visualized left adnexal mass or complex lesion. There is normal arterial and normal venous vascularity. There is minimal fluid in the cul-de-sac. The pre void volume of the bladder was 175 ml. Polycystic ovary disease: No. US/Transvaginal Non- IMPRESSION: Fluid filled thickened endometrium measuring 14 mm. Small amount of free fluid in the cul-de-sac. Electronically Signed: Arnol Li, at 11:02 EST , Service support ,
--- NOTE | 2019-12-07 12:38 | US_ITS ---
STUDY: ULTRASOUND OF THE FEMALE PELVIS - COMPLETE REASON FOR EXAM: Female, 39 years old. IRREGULAR MENSES LMP: December 04, 2019. TECHNIQUE: Transabdominal and Transvaginal TECHNICAL QUALITY: Adequate. COMPARISON: None. FINDINGS: The uterus is anteverted and is in a midline position. The uterus measures 9.8 cm x 7.9 cm x 5.9 cm. Normal uterine cervix. The endometrium measures 14 mm in thickness, and is fluid distended. There is no demonstrated endometrial mass. There is no demonstrated myometrial mass. I.U.D. - The patient does not have an I.U.D. The right ovary is visualized. The right ovary measures 3.1 cm x 2 cm x 2.2 cm. There is no right ovarian cyst or ovarian mass. There is no visualized right adnexal mass or complex lesion. There is normal arterial and normal venous vascularity. The left ovary is visualized. The left ovary measures 2.9 cm x 1.7 cm x 1.4 cm. There is no left ovarian cyst or ovarian mass. There is no visualized left adnexal mass or complex lesion. There is normal arterial and normal venous vascularity. There is minimal fluid in the cul-de-sac. The pre void volume of the bladder was 175 ml. Polycystic ovary disease: No. US/Pelvic (Non ) IMPRESSION: Fluid filled thickened endometrium measuring 14 mm. Small amount of free fluid in the cul-de-sac. Electronically Signed: Arnol Li, at 11:02 EST , Service support ,
[2019-12-07 12:52] LABS: Absolute Lymphocyte Count 2.54 X10^3/uL (0.83-4.51); Basophil# 0.04 X10^3/uL; Basophil% 0.6 % (0-1); Eosinophil# 0.08 X10^3/uL; Eosinophils% 1.1 % (0-5); Hematocrit 41.7 % (37-47); Hemoglobin 13.8 g/dL (12.0-15.0); Lymphocyte # 2.54 X10^3/ul (4.0); Lymphocyte % 35.3 % (19-41); Mean Corp Hgb Conc 33.1 g/dL (32-36); Mean Corpuscular Hgb 29.4 pg (27.0-32.0); Mean Corpuscular Volume 88.7 fL (81-99); Monocyte# 0.51 X10^3/uL; Monocyte% 7.1 % (0-10); NRBC Flagged by Analyzer 0 % (0-5); Neutrophil # 3.99 X10^3/uL (2.7-7.7); Neutrophil % 55.5 % (47-70); Platelet Count 210 K/mm3 (150-450); RBC Distribution Width CV 12.4 % (11.6-14.6); RBC Distribution Width SD 40.9 fl (35.1-43.9); White Blood Count 7.2 K/mm3 (4.4-11.0)
[2019-12-07 13:29] LABS: Thyroid Stim Hormone (TSH) 1.31 uIU/mL (0.358-3.74)
== END ==
PROVIDERS: Referring Provider Obstetrics & Gynecology; Visit Provider Obstetrics & Gynecology
DX: N93.9 Abnormal uterine and vaginal bleeding, unspecified (principal)
CPT/HCPCS: 36415; 76830; 76856; 84443; 85025

== ENCOUNTER → 2024-09-30 | Outpatient (CLI) | payer SELFPAY ==
[2024-10-09 08:07] LABS: HPV APTIMA, High Risk Negative (Negative)
== END | disposition home or self-care (01) ==
LOC: LABSPEC 16:10
PROVIDERS: Referring Provider Advanced Practice Midwife; Visit Provider Advanced Practice Midwife
DX: Z12.4 Encounter for screening for malignant neoplasm of cervix (principal)
CPT/HCPCS: 87624; 88175; G0145